=== PATIENT | male | born 1980 | race Two or more races ===

== ENCOUNTER 2019-06-23 13:53 | Emergency (ER) | payer OTHER ==
[~2019-06-23] VITALS: Ht 175.3 cm; Wt 64.3 kg
[2019-06-23 13:55] VITALS: BP 116/69
== END 2019-06-23 14:22 | disposition home or self-care (01) ==
LOC: ED 14:10
DX: K02.9 Dental caries, unspecified (principal); J45.909 Unspecified asthma, uncomplicated
CPT/HCPCS: 99283